=== PATIENT | female | born 1985 | race Caucasian/White ===

== ENCOUNTER 2024-06-26 20:16 | Emergency (ER) | payer OTHER, SELFPAY ==
[2024-06-26 20:23] VITALS: BP 100/70
[2024-06-26 21:00] LABS: HCG, Serum Qualitative Screen Negative
[2024-06-26 21:03] LABS: ALT (SGPT) 17 U/L (0-35); AST (SGOT) 24 U/L (14-36); Albumin 4.5 g/dl (3.5-5.0); Alkaline Phosphatase 58 U/L (38-126); Blood Urea Nitrogen 24 mg/dl (7-17); Calcium 9.5 mg/dl (8.4-10.2); Carbon Dioxide 27 mmol/L (22-30); Chloride 103 mmol/L (98-107); Glucose 90 mg/dl (70-99); Lipase 235 U/L (23-300); Potassium 4.9 mmol/L (3.5-5.1); Sodium 141 mmol/L (135-145); Total Bilirubin 0.4 mg/dl (0.2-1.3); Total Protein 7.1 g/dl (6.3-8.2); eGFR 54.65
--- NOTE | 2024-06-26 22:12 | ED.GENMED ---
History of Present Illness
General
Chief Complaint: Abdominal Pain
Source: patient
Exam Limitations: none
Time Seen by Provider: 06/26/24 21:54
History of Present Illness
History of Present Illness:
This is a 38 year old female that comes in with c/o right upper abd pain. State that she started with this right sided abd pain that is up under her ribs. State that it did subside and then she walked to the nurses desk and the jordan was severe.
States that she sat back down and then the pain is dull. States that the pain went up into her throat. States that she felt SOB. Denies any fever, chills, chest pain, nausea, vomiting, diarrhea, headache, dizziness, urinary burning.
Past History
Past History
ED Past Medical History: None
ED Past Surgical History: None
Social History
Tobacco: Non-smoker
Alcohol: None
Personal:
Living: with family
Review of Systems
Review of Systems
All Other Systems: ROS reviewed and negative except as documented in HPI and ROS
Constitutional: Reports no symptoms; Denies fever or chills
EENT: Reports no symptoms
Respiratory: Reports trouble breathing; Denies cough
Cardiac: Reports no symptoms; Denies chest pain
ABD/GI: Reports abdominal pain; Denies nausea, vomiting or diarrhea
: Reports no symptoms; Denies dysuria, frequency or urgency
Musculoskeletal: Reports no symptoms
Skin: Reports no symptoms
Neurological: Reports no symptoms; Denies dizzy or headache
Psychiatric: Reports no symptoms
Phy Exam
General Physical Exam
General Presentation: no apparent distress
General age: appears stated age
General Skin: warm and dry
General Habitus: normal
General Mental: alert
General Hydration: appears well hydrated
ENT Exam
ENT Exam: TM's normal, pharynx normal and neck supple
Eye Exam
Eye Exam: EOMI
Cardiovascular Exam
Cardiovascular Exam: regular rate/rhythm, no edema, no murmur and normal peripheral pulses
Pulmonary Exam
Pulmonary Exam: lungs clear, no respiratory distress, no rales, chest non tender, no crackles, no rhonchi, no wheezing and no cough
Gastrointestinal Exam
Gastrointestinal Exam: normal bowel sounds, soft, no organomegaly, no pulsatile mass, non distended and tender (RUQ tenderness with palpation)
Musculoskeletal Exam
Musculoskeletal Exam: full ROM and no edema
Skin Exam
Skin Exam: normal color, warm/dry, no rash and no petechia
Psychiatric Exam
Psychiatric Exam: normal mood/affect
Course
Orders/Labs/Results
Orders:
Orders
06/26/24 20:27
Test Result ONCE
06/26/24 20:31
Comprehensive Metabolic Panel Urgent
HCG, Serum Qualitative Screen Urgent
Lipase Urgent
06/26/24 22:04
Ketorolac [Toradol] 30 mg IV NOW STA
US Abdomen Complete/Upper Urgent
Comment:
Reason For Exam: RUQ pain
06/26/24 22:20
Urinalysis Reflex To Culture Urgent
Date Specimen was Collected: 06/26/24
Time Specimen was Collected: 22:16
Urine Microscopic Reflex Cult Urgent
Urine Culture Urgent
CHARLENE Source: U
Specimen Description:
Date Specimen was Collected: 06/26/24
Time Specimen was Collected: 22:16
06/26/24 22:34
D-Dimer Urgent
06/26/24 22:35
Complete Blood Count/With Diff Urgent
Abnormal Lab Results
06/26/24 06/26/24 06/26/24
20:31 22:20 22:35
Hct 36.9 L %
(37.0-47.0)
MPV 11.1 H fL
(7.4-10.4)
Absolute Lymphs (auto) 4.2 H 10^3/uL
(1.2-3.4)
BUN 24 H mg/dl
(7-17)
Creatinine 1.3 H mg/dL
(0.6-1.0)
Urine Ketones Trace A
(Negative)
Leukocyte Esterase Rfl Trace A
(Negative)
Urine Bacteria (Reflex) Moderate A
(Negative)
06/26/24 22:35
06/26/24 20:31
Dehydration, Cr elevated. Lipase normal at 235, HCG negative. D-dimer 0.35, Urine negative for infection.
Vital Signs
Initial and Last Documented VS:
Initial Vital Signs
Temp Pulse Resp BP Pulse Ox
97.7 F 88 24 100/70 98
06/26/24 20:23 06/26/24 20:23 06/26/24 20:23 06/26/24 20:23 06/26/24 20:23
Last Documented Vital Signs
Temp Pulse Resp BP Pulse Ox
97.7 F 85 16 113/70 98
06/26/24 20:23 06/26/24 22:37 06/26/24 22:37 06/26/24 22:37 06/26/24 22:37
MDM/Problems Addressed
Differential Diagnosis Includes:
Gallbladder disease, PE,
MDM/Problems Addressed:
This is a 38 year old female that comes in with c/o right upper abd pain.
Will check labs and US. Will medicate for pain.
Back into see patient. Reviewed labs and ultrasound. Offered patient pain medication again and patient refused. Patient to use Tylenol or Ibuprofen for pain. Follow up with the family doctor. Return with any concerns.
Chronic conditions affecting care:
NA
Acute Exacerbation and/or Progression of Chronic Illness:
NA
*Radiology
Radiology exam reviewed: radiology read reviewed (US-The gallbladder is mildly contracted. No sonographic evidence of acute cholecystitis. )
*Pulse Oximetry
Patient hypoxic: no
*EKG
Interpreted by ED Provider?: NA
Rate: EKG- N/A
*Personal Banking Representative Interpretation
Rate: Personal Banking Representative- N/A
*Critical Care Note
Total Time (30-74mins, 75-104mins- exclusive of procedures): Not Applicable
ED Attending Note
-
Portions of this chart may have been created with voice recognition software.� Occasional wrong word or��sound alike� substitutions may have occurred due to the inherent limitations of voice recognition software.
Discharge Plan
Departure
Patient Disposition: Home (Routine Discharge)
Date of Disposition: 06/27/24
Time of Disposition: 00:32
Patient with high blood pressure during this ER visit?: No
Condition: Good
Covid-19: Not Applicable
Discharge Problem:
Right upper quadrant abdominal pain
Instructions: Abdominal Pain
Prescriptions:
No Action
No Current Medications
0
Referrals:
NONE,* [Family Provider] -
Activity Restrictions/Additional Instructions:
As discussed, your blood work shows dehydrated. Please increase your water intake to 8-8oz glasses daily. Your Ultrasound was negative for any acute process and our urine was negative for infection. Please use Tylenol or Ibuprofen for pain. Follow
up with the family doctor for recheck. IF YOU HAVE INCREASED OR CHANGING PAIN, FEVER, OR YOU HAVE ANY OTHER CONCERNS PLEASE RETURN TO THE EMERGENCY ROOM.
Interventions
Interventions:
*Risk Screen - Suicide Last Done: 06/26/24 20:23
*General Assessment Last Done: 06/26/24 22:13
*Neglect/Abuse Screening Last Done: 06/26/24 20:23
ED- Fall Risk Assessment Last Done: 06/26/24 22:13
*ED COVID-19 Vaccine History Last Done: 06/26/24 22:37
[id number] Assessment Last Done: 06/26/24 22:14
Discharge Date and Time
Print Language: PANAMANIAN
[2024-06-26 22:13] VITALS: BMI 23.9
[2024-06-26 22:30] LABS: Urine Albumin Negative (Neg - Trace); Urine Bilirubin Negative (Negative); Urine Character Clear (Clear); Urine Color Yellow; Urine Glucose Negative (Negative); Urine Ketone Trace (Negative); Urine Leukocyte Trace (Negative); Urine Nitrite Negative (Negative); Urine Occult Blood Negative (Negative); Urine Specific Gravity 1.025 (<1.030); Urine Urobilinogen Negative (Neg - 1+)
[2024-06-26 22:37] VITALS: BP 113/70
[2024-06-26 22:42] LABS: % Basophils 0.3 % (0-2); % Eosinophils 1.2 % (0-6); % Immature Granulocytes 0.3 % (0-0.5); % Lymphocytes 42.1 % (20.5-51.1); % Monocytes 5.2 % (1.7-9.3); % Neutrophils 50.9 % (42.2-75.2); Absolute Eosinophils 0.1 10^3/uL (0-0.7); Absolute Lymphocytes 4.2 10^3/uL (1.2-3.4); Absolute Monocytes 0.5 10^3/uL (0.1-0.6); Absolute Neutrophils 5.1 10^3/uL (1.4-6.5); Hematocrit 36.9 % (37.0-47.0); Hemoglobin 12.6 g/dL (12.0-16.0); Mean Corp Hgb Conc. 34.1 g/dL (33.0-37.0); Mean Corpuscular Hgb 29.6 pg (27.0-31.0); Mean Corpuscular Volume 86.8 fL (81.0-99.0); Mean Platelet Volume 11.1 fL (7.4-10.4); Nucleated Red Blood Cells % 0 %; Platelet Count 232 10^3/uL (130-400); Red Blood Cell Count 4.25 10^6/uL (4.20-5.40); Red Cell Dist. Width 13.7 % (11.5-14.5); White Blood Cell Count 9.9 10^3/uL (4.8-10.8)
[2024-06-26 23:06] LABS: Urine Bacteria Moderate (Negative); Urine Squamous Cell >30 /LPF (Few)
[2024-06-26 23:07] LABS: D-Dimer 0.35 ug/mlFEU (0.00-0.50)
== END 2024-06-27 00:39 | disposition home or self-care (01) ==
LOC: EMR 20:16
PROVIDERS: Clinical Nurse Specialist Family Health; Emergency Medicine; EMERGENCY PHYSICIAN Emergency Medicine
DX: R10.11 Right upper quadrant pain (principal)
CPT/HCPCS: 99284; 76700; 80053; 81003; 81015; 83690; 84703; 85025; 85379; 87086

== ENCOUNTER 2025-05-07 23:19 | Emergency (ER) | payer OTHER, SELFPAY ==
[2025-05-07 23:23] VITALS: BP 114/66
--- NOTE | 2025-05-08 01:40 | ED.GENMED ---
History of Present Illness
General
Chief Complaint: Headache
Source: patient and spouse
Time Seen by Provider: 05/08/25 01:20
History of Present Illness
History of Present Illness:
This patient is a 39-year-old female who was feeling her usual self until approximately 8 PM tonight when she started to feel nauseous. She denies any associated vomiting, fever, chills. Then, around 10:30 PM she had an episode of nonbloody
diarrhea. She was asleep, and then awoke with the urge to have a bowel movement. She then noted that she felt like she could not control her body described as feeling like she needed to give 'all my energy' in order to talk or move. She says her
speech was not slurred, and she was able to articulate what she wanted to do as long as she gave it her energy. With this, she noted mild 'pressure not pain' on the side of her head now fully resolved. She said it was a distinct 'episode' and it
gradually went away. Her who is bedside states that he thought that she was just sleepwalking because she was acting erratically, but conscious. There is no history of recent vomiting, fever, chills, chest pain, dyspnea, abdominal pain,
urinary symptoms, recent travel. Of note, her daughter had vomiting about 2 days ago, otherwise no sick contacts. Patient now feels slightly nauseous but otherwise completely fine. She denies associated numbness, tingling, focal weakness, visual
changes, slurred speech, or facial droop with the symptoms.
Past History
Past History
ED Past Medical History: None
ED Past Surgical History: None
Social History
Tobacco: Non-smoker
Alcohol: None
Drug: None
Personal:
Living: with family
Phy Exam
Physical Exam
Physical Exam:
GENERAL: Alert , in no apparent distress
EYE: pupils equal and reactive, EOMI, no nystagmus, no photophobia
NECK: Supple, no significant adenopathy.
ENT: o/p clr, mmm, no tongue laceration or injury.
CARDIAC: Regular rate and rhythm .
LUNGS: Clear breath sounds bilaterally, no acute respiratory distress, no wheezes/rales/rhonchi
ABDOMEN: Soft, without focal tenderness, no r/g, no cvat
NEUROLOGICAL: Alert and oriented, no focal neuro deficits, normal gait, [id number] normal, motor 5 out of 5, sensory intact, cranial nerves II through XII intact
SKIN: Warm and dry, skin intact.
MUSCULOSKELETAL: No edema, well perfused.
PSYCH: Normal and appropriate interaction.
Course
Orders/Labs/Results
Orders:
Orders
05/08/25 01:35
CT Head W/o Iv Contrast Urgent
Comment:
Reason For Exam: mental status change
05/08/25 01:40
Ondansetron Orally Disint [Zofran Odt (Orally Disintegrating)] 4 mg PO NOW STA
Vital Signs
Initial and Last Documented VS:
Initial Vital Signs
Temp Pulse Resp BP Pulse Ox
98 F 90 18 114/66 100
05/07/25 23:23 05/07/25 23:23 05/07/25 23:23 05/07/25 23:23 05/07/25 23:23
Last Documented Vital Signs
Temp Pulse Resp BP Pulse Ox
98 F 93 18 110/61 96
05/07/25 23:23 05/08/25 02:01 05/08/25 02:01 05/08/25 02:01 05/08/25 02:01
*Pulse Oximetry
SaO2: 100
Patient hypoxic: no
*Critical Care Note
Total Time (30-74mins, 75-104mins- exclusive of procedures): Not Applicable
Update Note
Update Note:
Patient presents to the Emergency Department with ___episode of mild headache and feeling like difficult performing tasks
Number and Complexity of Problems Addressed at the Encounter
� Chronic conditions affecting care:
� Acute Exacerbation and/or Progression of Chronic Illness:
� Differential Diagnosis includes: But not limited to sleep cycle related event, seizure, TIA, SAH, etc. etc.
Amount and/or Complexity of Data to be Reviewed and Analyzed
� I performed an independent evaluation of and my interpretation is:
EKG:
CT:(late entry) NAD head ct
Xrays:
Laboratory Studies:
Other: Vital signs are unremarkable.
� Review of other/old records reveals:
� Clinical information was obtained by an independent historian: who is bedside and describes what he witnessed in terms of her behavior
� Prescriptions/Medications Considered but not given:
� Further testing considered but not performed:
Risk of Complications and/or Morbidity or Mortality of Patient Management
� Social determinants of health affecting care:
� Discussion with other providers (PCP, Hospitalists, Consultants, etc):
� Escalation of care including admission/observation vs risk of discharge considered: Patient is completely asymptomatic with the exception of mild nausea. She is neurologically intact. does not describe symptoms that
are entirely consistent with a seizure. She was always awake and alert and able to follow commands during this episode, no urinary incontinence, postictal state, or tongue injury. I think very unlikely to be a TIA/CVA given normal neurological
exam, atypical symptoms. She did not have specific aphasia or dysarthria, but rather felt like she needed to give all her energy in order to speak. She was able to speak in full sentences however without aphasia.
ED Attending Note
-
Portions of this chart may have been created with voice recognition software.� Occasional wrong word or��sound alike� substitutions may have occurred due to the inherent limitations of voice recognition software.
Discharge Plan
Departure
Patient Disposition: Home (Routine Discharge)
Date of Disposition: 05/08/25
Time of Disposition: 04:06
Patient with high blood pressure during this ER visit?: No
Condition: Good
Discharge Problem:
Headache
Instructions: Headache, Adult (DC)
Prescriptions:
No Action
No Current Medications
0
Referrals:
UNKNOWN - PT DOES,NOT KNOW [Family Provider]
Activity Restrictions/Additional Instructions:
IF YOU DEVELOP CHEST PAIN, TROUBLE BREATHING, FEVER, VOMITING, NUMBNESS, SEVERE HEADACHE, WEAKNESS, DIZZINESS, CHANGE IN SPEECH OR VISION, OR OTHER WORRISOME SIGNS, GO TO THE ER IMMEDIATELY!
Interventions
Interventions:
*Risk Screen - Suicide Last Done: 05/08/25 02:03
*General Assessment Last Done: 05/08/25 02:03
*Neglect/Abuse Screening Last Done: 05/08/25 02:03
*ED- Fall Risk Assessment Last Done: 05/08/25 02:03
*ED COVID-19 Vaccine History Last Done: 05/08/25 02:03
*Nursing Disposition Last Done: 05/08/25 04:55
ED- Neurological Assessment Last Done: 05/08/25 02:05
ED-Psychological Assessment Last Done: 05/08/25 02:05
Discharge Date and Time
Discharge Date/Time: 05/08/25 04:56
Print Language: CANADIAN
[2025-05-08] MEDS: ZOFRAN ODT (ORALLY DISINTEGRATING) 4 MG PO (01:59)
[2025-05-08 02:01] VITALS: BP 110/61; BMI 24.2
== END 2025-05-08 04:56 | disposition home or self-care (01) ==
LOC: EMR 23:19
PROVIDERS: EMERGENCY PHYSICIAN Emergency Medicine
DX: R51.9 Headache, unspecified (principal); R11.0 Nausea
CPT/HCPCS: 99284; 70450